=== PATIENT | male | born 1975 | race African-American/Black ===

== ENCOUNTER 2016-05-17 04:01 | Emergency (ER) | payer SELFPAY ==
[~2016-05-17] VITALS: Ht 165.1 cm; Wt 68.0 kg
[~2016-05-17 04:01] MED LIST: AMOXICILLIN/CLA1 TA1 PO; APAP/HYDROCODON1 T10 PO; CIPRO 500MG TA500 MG PO; FLAGYL 500MG.500 MG PO; FLAGYL500 MG PO; LEVAQUIN750 MG PO; LORTAB 5/500 501 TAB PO; NOMEDS XX
[2016-05-17 04:22] LABS: LYMPH # 1.5 K/mm3 (0.7-4.5); LYMPH % 11.4 % (10-50)
[2016-05-17 04:23] LABS: HEMOGLOBIN 15.1 g/dL (14.1-18.0)
[2016-05-17 04:35] LABS: NEUTROPHILS 82 % (42-76)
--- NOTE | 2016-05-17 05:35 | Emergency Room Report ---
History of Present Illness Time Seen by [id number] Presenting Problem in Triage Pt arrived:Walked Presenting Problem:C/O ABD PAIN. 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 N Clinical Suspician of Infection? N Mental Status: 1 - Regular (Normal Baseline) Sepsis Risk:Low Sepsis Risk Have you (or family members/close friends) recently traveled outside the [place]? N If Yes, where/when: Have you had exposure to infectious disease within the past month? N TB? Other? Specify: Source patient, RN notes reviewed, old records Exam Limitations no limitations Comment pt with mid abd pain which started this pm with assoc n/v but no melena or fever Cardiac Chest Pain Chest pain indicative of cardiac No Timing/Duration this evening Severity moderate ALLERGIES Coded Allergies: No Known Allergies (05/17/16) Home Medications Reported Medications No Home Medications (NO HOME MEDICATIONS) 1 EACH XX ONCE History Medical History General CAD? No Angina: No PR: No Hypertension? No Hyperlipidemia? No CHF? No DVT? No PE? No COPD? No Asthma? No Anemia? No GERD? No Gastric ulcers? No GI Bleed? No Hernia? Yes Thyroid Problems? No Hypothyroidism? No CVA? No Seizures? No Diabetes? No Renal Insuffiency? No End Stage Renal Disease? No UTI? No Stones? No BPH? No GB Disease: No Nephritic Syndrome? No Asplenia? No Hepatitis? No Sickle Cell Disease? No Arthritis? No Migraines? No Cataracts? No Glaucoma? No MRSA? No HIV? No TB? No Anxiety? No Depression? No Cancer? No Immunization Hx DT/Tetanus 06/21/2010 Flu 2014-16FSN Pneumonia Refuses Surgical Hx Previous Surgery?Y R. WRIST CYST REMOVAL L. EAR CYST REMOVAL TENDON RECONSTRUCTION R HAND Family History Family Hx Diabetes Yes CAD No Hypertension No Hyperlipidemia No Cancer No TB No Social History Smoking Hx Smoker: Current Every Day Smoker Tobacco: Yes Type Cigarettes Packs/day < 1 Pack Alcohol Alcohol: Yes Drugs none Review of Systems All Other Systems Reviewed and Negative Constitutional denies fever Eyes denies drainage ENT denies: ear pain, epistaxis, throat pain. Respiratory denies cough, denies shortness of breath, denies wheezing Cardiovascular denies chest pain, denies palpitations, denies syncope Gastrointestinal see HPI, abdominal pain, nausea, vomiting Genitourinary denies: dysuria, frequency, hesitancy, hematuria. Musculoskeletal denies back pain, denies joint pain, denies neck pain Skin denies rash Psychiatric/Neurological denies headache, denies seizure Physical Exam Vital Signs Vital Signs Date Time Temp Pulse Resp B/P Pulse O2 O2 Flow FiO2 Ox Delivery Rate 05/17 0549 98 18 115/64 98 05/17 0445 90 18 146/68 98 05/17 0444 18 05/17 0406 97.6 94 18 132/77 98 - WBC >12,000 or <4,000 or 10% bands? 2 or more SIRS Criteria Met? B/P:146/68 MAP:95 Creatinine >2.0? UA output<0.5ml/kg/hr for 2 hrs? Platelet count >100,000? Lactate >2.0mmol/1? INR >1.2 or PTT > than 60 sec? Evidence of Organ Dysfunction? Provider documented clinical suspician of infection? N Sepsis Criteria Count: 1 Sepsis Risk: Low Sepsis Risk General Appearance no apparent distress Eye Exam - bilateral eye PERRL, bilateral eye EOMI Ear, Nose, Throat normal ENT inspection Neck supple Respiratory Status No: respiratory distress. 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 No Results/Orders Laboratory Tests 05/17/16 0420: Sodium 137, Potassium 4.5, Chloride 101, Carbon Dioxide 25, BUN 12, Creatinine 1.0, Estimated Creat Clear 93, Estimated GFR (MDRD) 82, Glucose 99, Calcium 9.2, Total Bilirubin 0.5, AST 14 L, ALT 19, Alkaline Phosphatase 63, Total Protein 8.0, Albumin 3.9, Globulin 4.1 H, Albumin/Globulin Ratio 1.0 L, Amylase 64, Lipase 57 L, WBC 13.1 H, RBC 4.95, Hgb 15.1, Hct 46.7, MCV 94.3, RDW 12.9, Plt Count 250, MPV 6.5 L, Gran % 85.2 H, Gran # 11.1 H, Total Counted 100, Lymphocytes % 11.4, Monocytes % 2.8, Eosinophils % 0.5, Basophils % 0.1, Neutrophils 82 H, Band Neutrophils 8, Lymphocytes (Manual) 9 L, Lymphocytes # 1.5, Monocytes (Manual) 1 L, Monocytes # 0.4, Eosinophils # 0.1, Basophils # 0.0, RBC/WBC/PLT Morphology NORMAL, Platelet Estimate NORMAL, PUBS MCHC 32.3, MCH 30.4 Current Medication Orders Sig/John Start time Last Medication Dose Route Stop Time Status Admin Sodium Chloride 1,000 ML .Q1H1M 05/17 0545 DC 05/17 IV 05/17 0645 0539 Sodium Chloride 10 ML PRN PRN 05/17 544 AC IV 05/18 0535 Sodium Chloride 1,000 ML .STK-MED ONE 05/17 0536 DC IV Sodium Chloride 1,000 ML .STK-MED ONE 05/17 0433 DC IV Ketorolac 0 .STK-MED ONE 05/17 043 DC Tromethamine .ROUTE Ondansetron HCl 0 .STK-MED ONE 05/17 043 DC .ROUTE Ketorolac 30 MG ONCE ONE 05/17 414 DC 05/17 Tromethamine IV 05/17 0416 0444 Ondansetron HCl 4 MG ONCE ONE 05/175 DC 05/17 IV 05/17 0416 0444 Sodium Chloride 10 ML PRN PRN 05/17 041 AC IV 05/18 0410 Sodium Chloride 1,000 ML .Q1H1M 05/17 0415 DC 05/17 IV 05/17 0515 0445 Sodium Chloride 10 ML PRN PRN 05/17 0415 AC IV 05/18 041 Orders Procedure Date/time Status DIET-NOTHING BY MOUTH 05/[address] ABD & PELVIS W/O CONTRAST 05/17 425 Active DIFFERENTIAL-WBC 05/[address] ABD/PELVIS REQ 05/18 411 Active IV SALINE LOCK 05/18 411 Active URINALYSIS/COMPLETE 05/18 411 Active LIPASE 05/18 411 Complete CBC WITH AUTO DIFF 05/18 411 Complete CHEM 12 PROFILE 05/18 411 Complete AMYLASE 05/18 411 Complete XRAY/CT/US XRAY/CT/US CT abdomen, pelvis CT interpretation by discussed w/radiologist Time results known: 539 CT Results normal/NAD Departure Departure Time of Disposition 0540 Disposition DC Home or Self Care(routine) Clinical Impression Primary Impression: Gastroenteritis Condition STABLE Patient Instructions DI for Vomiting -- Adult Additional Instructions fluids and see pcp for follow up Discharge Counseling Counseled pt/family regarding diagnosis, test results, medications/RX, follow up needs ED Critical Care Critical Care No at [id number]
[2016-05-17 07:09] VITALS: BP 126/66
--- NOTE | 2016-05-17 12:04 | RADIOLOGY REPORT PS360 ---
CT ABD PELVIS W/O CONTRAST ORDERING PHYSICIAN : Rolando Jackson MD PATIENT AGE: 41 years GENDER: Male INDICATION: ABD PAIN Nausea vomiting abdominal pain generalized. 41-year-old TECHNIQUE: CT abdomen and pelvis without oral nor IV contrast. Sagittal and coronal reconstruction CT workstation COMPARISON: Previous CT abdomen pelvis January 2015 within here shot FINDINGS Lower thoraxlung bases clear. With no active disease. Small calcified granulomas left lower lobe base. Upper normal thickness GE junction. Abdomen and pelvis. Decreased sensitivity with lack IV contrast Liver with mild diffuse fatty change. Spleen unremarkable. Adrenals unremarkable. Gallbladder. No calcified gallstones. No inflammation. Unremarkable. Pancreas. Noncontrast pancreas unremarkable. Kidneys: no urinary tract calculi or obstruction. Ureters unremarkable. Urinary bladder upper normal wall thickness is likely reflect lack of distention. Moderate size prostate. GI TRACT. . upper normal wall thickness at GE junction. Minimal fluid stomach.. Small bowel. Appears satisfactory with no dilatation nor obstruction. Appendix normal. Terminal ileum appears satisfactory. No wall thickening. Large bowel. Diffuse fatty wall thickening throughout large bowel.-Most notable towards right colon and cecum. Nonspecific observation but can be seen with prior or chronic inflammation of colon.. Other conditions can contribute. There are some scattered diverticuli at the large bowel most notable at right colon along lateral aspect of cecum axial image 58. Upper normal wall thickness but no significant inflammation. Doubt diverticulitis. Similar appearance to previous study. Osseous. No significant findings IMPRESSION... No discrete acute findings abdomen or pelvis Submucosal fat deposition and fatty wall thickening throughout colon noted similar to previous study. May reflect some prior or chronic inflammatory changes but nonspecific observation. Cecal diverticulosis without acute diverticulitis by CT Upper normal wall thickness GE junction
== END 2016-05-17 07:10 | disposition home or self-care (01) ==
LOC: ER 04:01
PROVIDERS: Emergency Medicine
DX: A08.4 Viral intestinal infection, unspecified (principal)
CPT/HCPCS: J2405